=== PATIENT | female | born 1935 | race Hispanic/Latino ===

== ENCOUNTER 2025-06-19 09:23 | Emergency (ER) | payer MEDICARE, OTHER ==
[~2025-06-19] VITALS: Ht 157.5 cm; Wt 68.0 kg
[~2025-06-19 09:23] MED LIST: ALENDRONATE SOD70 MG PO; CARVEDILOL6.25 MG PO; CLOPIDOGREL75 MG PO; LEVOCETIRIZINE D5 MG PO; LEVSIN0.125 MG SL; NEXIUM20 MG PO; NIFEDICAL XL30 MG PO
[2025-06-19 10:04] VITALS: TEMP 98
[2025-06-19 10:28] LABS: BASOPHILS % 0.2 % (0.0-1.0); EOSINOPHILS % 1.0 % (0.0-6.0); LYMPHOCYTES % 35.9 % (18.0-39.1); MONOCYTES % 18.4 % (4.4-11.3); NEUTROPHILS % 43.9 % (38.7-80.0); RED CELL DISTRIBUTION WIDTH 13.1 % (11.7-14.4)
[2025-06-19 11:02] LABS: EST GLOMERULAR FILTRATION RATE 11 ML/MIN (>=60)
[2025-06-19 12:00] VITALS: BP 223/93; PULSE 60; RESP 16
[2025-06-19 13:00] VITALS: PULSE 60; RESP 16; O2SAT 99
[2025-06-19 13:14] LABS: LEUKOCYTE ESTERASE ,URINE SMALL (NEGATIVE); PROTEIN,URINE DIPSTICK 2+ (NEGATIVE); URINE UROBILINOGEN 0.2 mg/dL (0.2 - 1)
[2025-06-19 13:24] LABS: EPITHELIAL CELLS,URINE FEW /LPF
== END 2025-06-19 14:23 | disposition home or self-care (01) ==
LOC: ER 09:27
DX: R10.32 Left lower quadrant pain (principal); K57.90 Diverticulosis of intestine, part unspecified, without perforation or abscess without bleeding; N20.0 Calculus of kidney; I12.0 Hypertensive chronic kidney disease with stage 5 chronic kidney disease or end stage renal disease; N18.6 End stage renal disease; D64.9 Anemia, unspecified; K40.20 Bilateral inguinal hernia, without obstruction or gangrene, not specified as recurrent; R94.31 Abnormal electrocardiogram [ECG] [EKG]; Z95.0 Presence of cardiac pacemaker
CPT/HCPCS: 36415; 72131; 74176; 80053; 81001; 83690; 84484; 85025; 93005; 99284